=== PATIENT | female | born 1955 | race Caucasian/White ===

== ENCOUNTER → 2016-08-28 | Outpatient (CLI) | payer OTHER | END | disposition home or self-care (01) | LOC: PCVCIMAG 09:19 | PROVIDERS: ATTEND Nuclear Medicine Nuclear Cardiology | DX: I65.23 Occlusion and stenosis of bilateral carotid arteries (principal); I73.9 Peripheral vascular disease, unspecified; Z95.820 Peripheral vascular angioplasty status with implants and grafts | CPT/HCPCS: 93880; 93923; 93978; 93924 ==

== ENCOUNTER → 2017-09-04 | Outpatient (CLI) | payer OTHER | END | disposition home or self-care (01) | LOC: PCVCIMAG 12:54 | DX: I10 Essential (primary) hypertension (principal); I73.9 Peripheral vascular disease, unspecified; E78.5 Hyperlipidemia, unspecified; I65.23 Occlusion and stenosis of bilateral carotid arteries; Z95.820 Peripheral vascular angioplasty status with implants and grafts | CPT/HCPCS: 93880; 93923; 93978 ==

== ENCOUNTER → 2018-03-18 | Outpatient (CLI) | payer OTHER ==
--- NOTE | 2018-03-18 14:27 | PCVCIMAG ---
EXAM: NONINVASIVE ARTERIAL EXAMINATION OF BOTH LOWER EXTREMITIES INCLUDING PRE AND POST EXERCISE PRESSURE MEASUREMENTS AND DOPPLER WAVEFORMS INDICATION: Peripheral Arterial Disease. Leg pain. FINDINGS: Right Brachial: 144 mm Hg. Right Dorsalis Pedis: 148 mm Hg. Right Posterior Tibial: 147 mm Hg. Right CARLA = 1.03. Left Brachial: 135 mm Hg. Left Dorsalis Pedis: 157 mm Hg. Left Posterior Tibial: 91 mm Hg. Left CARLA = 1.09. Post Exercise: Right Brachial 165 mm Hg. Right Dorsalis Pedis: 133 mm Hg. Left Dorsalis Pedis: 157 mm Hg. Right CARLA = 0.81. Left CARLA = 0.95. IMPRESSION: No resting ischemia in the right lower extremity. Mild exercise induced ischemia in the right lower extremity. No resting ischemia in the left lower extremity. No exercise induced ischemia in the left lower extremity. LOC:[id number]
--- NOTE | 2018-03-18 14:30 | PCVCIMAG ---
EXAM: AORTOILIAC DUPLEX INDICATION: Peripheral arterial disease FINDINGS: AORTA: Suprarenal aorta measures maximum diameter of 2.8 cm. There is not a fusiform infrarenal aortic aneurysm. The infrarenal aorta measures maximum diameter of 2.2 cm. No aortic stenosis. RIGHT COMMON ILIAC ARTERY: Maximum diameter is 1.2 cm. 50-60% restenosis within prior stent. RIGHT EXTERNAL ILIAC ARTERY: No significant stenosis. LEFT COMMON ILIAC ARTERY: Maximum diameter is 1.0 cm. No significant stenosis. LEFT EXTERNAL ILIAC ARTERY: No significant stenosis. IMPRESSION: No abdominal aortic aneurysm. 50-60% restenosis within the right common iliac artery stent. Previous left iliac stents maintaining satisfactory patency. LOC:[id number]
== END | disposition home or self-care (01) ==
LOC: PCVCIMAG 14:45
PROVIDERS: ATTEND Nuclear Medicine Nuclear Cardiology
DX: I73.9 Peripheral vascular disease, unspecified (principal)
CPT/HCPCS: 93923; 93978; 93924

== ENCOUNTER → 2018-03-22 | Outpatient (CLI) | payer OTHER ==
[~2018-03-22] MED LIST: ACETAMINOPHEN 500 MG TABLET PO ONE; CLOPIDOGREL BISULFATE 75 MG TABLET ONE; DIAZEPAM 10 MG TABLET. ONE; HEPARIN SODIUM 5,000 UNIT/ML VIAL for PCVC. ONE; IODIXANOL 270 MG/ML 100 ML VIAL. ONE; IV NORMAL SALINE 1000ML BAG 1,000 ML ONE; LIDOCAINE 1%/EPI 1:100,000 20 ML VIAL. ONE; MIDAZOLAM HCL/PF 2 MG/2 ML VIAL. ONE; WATER FOR INJECTION,STERILE 10 ML IJ ONE; ceFAZolin SODIUM 1 GM VIAL ONE; fentaNYL PF VIAL 100 MCG/2 ML VIAL ONE; hydrALAZINE 20 MG/ML VIAL. ONE
--- NOTE | 2018-03-22 10:52 | PCVCINTER ---
EXAM: 1. AORTOGRAM AND BILATERAL LOWER EXTREMITY RUNOFF ANGIOGRAM 2. BILATERAL RENAL ANGIOGRAPHY 3. AORTIC STENT PLACEMENT. 4. RIGHT COMMON ILIAC ARTERY STENT GRAFT PLACEMENT. 5. LEFT COMMON ILIAC ARTERY STENT GRAFT PLACEMENT. INDICATION: Peripheral arterial disease. Lower extremity claudication. Hypertension. Renal atherosclerosis. No prior catheter based angiographic study is available. A full diagnostic angiogram study is performed today and the decision to intervene is based on this diagnostic study. PROCEDURE: Procedure and risks of angiography intervention is appropriate including limb loss stroke and were discussed with the patient's family and consent obtained. The patient's right groin was prepped in the normal sterile fashion. IV conscious sedation was used throughout procedure with appropriate monitoring from 9:00 AM through 10:00 AM. Ultrasound was used to interrogate the right groin and showed the right common femoral artery to be patent. A permanent spot film was obtained. Under ultrasound guidance access into the right common femoral artery was obtained and a 5 [place] sheath was placed. Through this a 5 [place] flush catheter was placed into the abdominal aorta at the level of the renal arteries and AP aortogram was performed. Catheter was positioned at the aortic bifurcation and both oblique views of the pelvis were obtained. Catheter was positioned into the right external iliac artery and right leg runoff angiography was performed. Catheter was exchanged for a visceral catheter was placed into the right renal arteries and right renal angiograms obtained. Catheter was placed into the the left renal arteries and left renal angiograms were obtained. Catheter was advanced to the level of the left external iliac artery and left leg runoff angiography was obtained. The left groin was prepped and draped in the normal sterile fashion. Under ultrasound guidance access into the left common femoral artery was obtained and a 7 [place] sheath was placed. The right groin sheath was upsized to 8 [place]. Stent placement across the areas of high-grade stenosis in the distal abdominal aorta was carried out with VBX stent grafts deployed in a kissing fashion with subsequent dilatation to 9 and 12 mm. Stent placement across the areas of high-grade stenosis in the right common iliac artery was carried out with a 10 x 39 VBX stent graft with subsequent dilatation to 12.0 mm. Stent placement across the areas of high-grade stenosis in the left common iliac artery was carried out with a 9.0 with subsequent dilatation to diameter mm. Follow-up angiogram was performed. Catheters and wires removed. Sheath was removed and hemostasis obtained using the FISH device. No immediate complications. FINDINGS: Aortogram: There is one right and 2 left renal arteries. Moderate plaque infrarenal abdominal aorta. Moderate restenosis distal aorta. Pelvis: Moderate restenosis origin previous right common iliac artery stent. Stenosis origin left common iliac artery stent. Both internal iliac arteries are patent. The right and left external iliac arteries are patent. The right and left common femoral and profunda femoral arteries are patent. Right renal artery: Moderate plaque proximal vessel causes minimal stenosis. Left renal artery: There are 2 renal arteries. The upper renal artery has moderate plaque proximally which causes 40% stenosis. The lower artery has mild plaque that does not cause significant stenosis. Right leg: Superficial femoral artery and popliteal artery are patent. Three-vessel runoff into the foot. Left leg: Superficial femoral artery and popliteal artery are patent. Three-vessel runoff into the foot. Aorta: Following procedure as above the distal aorta shows good patency throughout. Right common iliac artery: Following procedure as above vessel shows good patency throughout. Left common iliac artery: Following procedure as above vessel shows good patency throughout. IMPRESSION: Moderate stenosis distal aorta at the origins of the right and left common iliac arteries were treated with stent graft placement as above with good patency restored. LOC:[id number]
== END | disposition home or self-care (01) ==
LOC: PCVCINTER 13:40
PROVIDERS: ATTEND Nuclear Medicine Nuclear Cardiology
DX: I70.1 Atherosclerosis of renal artery (principal); I70.228 Atherosclerosis of native arteries of extremities with rest pain, other extremity; I10 Essential (primary) hypertension
CPT/HCPCS: 36252; 37221; 37236; 75716; 76937; 99152; 99153; C1713; C1725; C1751; C1769; C1874; C1894; J0690; J1644; J2250; J3010; J3490; J7030; J0360

== ENCOUNTER → 2018-09-23 | Outpatient (CLI) | payer OTHER ==
--- NOTE | 2018-09-23 09:33 | PCVCIMAG ---
EXAM: NONINVASIVE ARTERIAL EXAMINATION OF BOTH LOWER EXTREMITIES INCLUDING PRE AND POST EXERCISE PRESSURE MEASUREMENTS AND DOPPLER WAVEFORMS INDICATION: Peripheral Arterial Disease. Leg pain. FINDINGS: Right Brachial: 144 mm Hg. Right Dorsalis Pedis: 158 mm Hg. Right Posterior Tibial: 156 mm Hg. Right CARLA = 1.10. Left Brachial: 143 mm Hg. Left Dorsalis Pedis: 130 mm Hg. Left Posterior Tibial: 129 mm Hg. Left CARLA = 0.90. Post Exercise: Right Brachial 157 mm Hg. Right Dorsalis Pedis: 130 mm Hg. Left Dorsalis Pedis: 134 mm Hg. Right CARLA = 0.83. Left CARLA = 0.85. IMPRESSION: No resting ischemia in the right lower extremity. Minimal exercise induced ischemia in the right lower extremity. No resting ischemia in the left lower extremity. Minimal exercise induced ischemia in the left lower extremity. LOC:[id number]
--- NOTE | 2018-09-23 10:28 | PCVCIMAG ---
APPROVED REPORT Laterality: Bilateral Indications Stenosis Doppler Spectral Velocity Analysis PSV / EDVPSV / EDV ECA (R) 117 / 28 cm/sECA (L) 86 / 19 cm/s dICA (R) 65 / 24 cm/sdICA (L) 57 / 24 cm/s Fabien (R) 87 / 35 cm/smICA (L) 84 / 33 cm/s pICA (R) 100 / 40 cm/spICA (L) 133 / 42 cm/s Bulb (R) 74 / 29 cm/sBulb (L) 92 / 27 cm/s dCCA (R) 77 / 26 cm/sdCCA (L) 82 / 32 cm/s mCCA (R) 71 / 22 cm/smCCA (L) 90 / 31 cm/s Vert (R) 46 / 18 cm/sVert (L) 50 / 18 cm/s ICA/CCA 1.30 ICA/CCA 1.62 Findings The right carotid bulb has moderate calcified plaque. The right proximal internal carotid artery shows <40% stenosis. The right common carotid artery shows no significant stenosis. The right external carotid artery shows no significant stenosis. The left carotid bulb has moderate calcified plaque. The left proximal internal carotid artery shows 40-50% stenosis. The left common carotid artery shows no significant stenosis. The left external carotid artery shows no significant stenosis. Conclusion 1. Right internal carotid artery stenosis (<40%) 2. Left internal carotid artery stenosis (40-50%) 3. Antegrade vertebral flow
--- NOTE | 2018-09-23 21:32 | PCVCIMAG ---
EXAM: AORTOILIAC DUPLEX INDICATION: Peripheral arterial disease FINDINGS: AORTA: Suprarenal aorta measures maximum diameter of 2.8 cm. There is not a fusiform infrarenal aortic aneurysm. The infrarenal aorta measures maximum diameter of 2.0 cm. No aortic stenosis. RIGHT COMMON ILIAC ARTERY: Maximum diameter is 1.0 cm. No significant stenosis. RIGHT EXTERNAL ILIAC ARTERY: Mild stenosis. LEFT COMMON ILIAC ARTERY: Maximum diameter is 1.1 cm. No significant stenosis. LEFT EXTERNAL ILIAC ARTERY: No significant stenosis. IMPRESSION: No abdominal aortic aneurysm. No significant aortoiliac stenosis seen. Previous distal aortic and bilateral common iliac artery stents remain patent. LOC:OFFICE
--- NOTE | 2018-09-23 21:34 | PCVCIMAG ---
EXAM: BILATERAL LOWER EXTREMITY ARTERIAL DUPLEX INDICATION: Peripheral Arterial Disease. Leg pain. FINDINGS: Right Leg: Satisfactory arterial waveforms throughout the common/profunda/superficial femoral, popliteal, anterior tibial, peroneal, and posterior tibial arteries. No flow limiting stenosis seen. Left Leg: Satisfactory arterial waveforms throughout the common/profunda/superficial femoral, popliteal, anterior tibial, peroneal, and posterior tibial arteries. No flow limiting stenosis seen. IMPRESSION: No flow limiting stenosis in the right lower extremity. No flow limiting stenosis in the left lower extremity. LOC:OFFICE
== END | disposition home or self-care (01) ==
LOC: PCVCIMAG 08:25
PROVIDERS: ATTEND Nuclear Medicine Nuclear Cardiology
DX: I65.23 Occlusion and stenosis of bilateral carotid arteries (principal); I73.9 Peripheral vascular disease, unspecified; E78.00 Pure hypercholesterolemia, unspecified; R09.89 Other specified symptoms and signs involving the circulatory and respiratory systems; I77.9 Disorder of arteries and arterioles, unspecified
CPT/HCPCS: 93880; 93924; 93925; 93978

== ENCOUNTER → 2019-07-01 | Outpatient (CLI) | payer OTHER ==
--- NOTE | 2019-07-01 08:47 | PCVCIMAG ---
EXAM: NONINVASIVE ARTERIAL EXAMINATION OF BOTH LOWER EXTREMITIES INCLUDING PRE AND POST EXERCISE PRESSURE MEASUREMENTS AND DOPPLER WAVEFORMS INDICATION: Peripheral Arterial Disease. Leg pain. FINDINGS: Right Brachial: 127 mm Hg. Right Dorsalis Pedis: 129 mm Hg. Right Posterior Tibial: 137 mm Hg. Right CARLA = 1.08. Left Brachial: 120 mm Hg. Left Dorsalis Pedis: 138 mm Hg. Left Posterior Tibial: 131 mm Hg. Left CARLA = 1.09. Post Exercise: Right Brachial 127 mm Hg. Right Posterior Tibial: 135 mm Hg. Left Dorsalis Pedis: 133 mm Hg. Right CARLA = 1.06. Left CARLA = 1.05. IMPRESSION: No resting ischemia in the right lower extremity. No exercise induced ischemia in the right lower extremity. No resting ischemia in the left lower extremity. No exercise induced ischemia in the left lower extremity. LOC:[id number]
--- NOTE | 2019-07-01 09:06 | PCVCIMAG ---
EXAM: BILATERAL CAROTID DUPLEX INDICATION: Carotid Occlusive Disease. FINDINGS: Doppler Measurements (centimeters per second): RIGHT: Peak CCA-92, Peak ECA-84, Diastolic ICA-53, Peak ICA-124, ICA/CCA Ratio-1.4. LEFT: Peak CCA-90, Peak ECA-74, Diastolic ICA-37, Peak ICA-123, ICA/CCA Ratio-1.4. RIGHT CAROTID: The carotid bulb has moderate plaque. The proximal internal carotid artery shows 40-50% stenosis. The common carotid artery shows no significant stenosis. The external carotid artery shows no significant stenosis. LEFT CAROTID: The carotid bulb has moderate plaque. The proximal internal carotid artery shows 40-50% stenosis. The common carotid artery shows no significant stenosis. The external carotid artery shows no significant stenosis. Antegrade flow in both vertebral arteries. IMPRESSION: 40-50% stenosis of the right internal carotid artery with moderate plaque. 40-50% stenosis of the left internal carotid artery with moderate plaque. Little overall change since September 2018 study. LOC:[id number]
--- NOTE | 2019-07-01 09:20 | PCVCIMAG ---
EXAM: AORTOILIAC DUPLEX INDICATION: Peripheral arterial disease FINDINGS: AORTA: Suprarenal aorta measures maximum diameter of 2.5 cm. There is not a fusiform infrarenal aortic aneurysm. The infrarenal aorta measures maximum diameter of 2.2 cm. No aortic stenosis. RIGHT COMMON ILIAC ARTERY: Maximum diameter is 1.0 cm. No significant stenosis. RIGHT EXTERNAL ILIAC ARTERY: No significant stenosis. LEFT COMMON ILIAC ARTERY: Maximum diameter is 1.0 cm. No significant stenosis. LEFT EXTERNAL ILIAC ARTERY: No significant stenosis. IMPRESSION: No abdominal aortic aneurysm. No aortoiliac stenosis seen. Previous bilateral iliac stents are patent. LOC:[id number]
== END | disposition home or self-care (01) ==
LOC: PCVCIMAG 08:03
PROVIDERS: ATTEND Nuclear Medicine Nuclear Cardiology
DX: I65.23 Occlusion and stenosis of bilateral carotid arteries (principal); I25.10 Atherosclerotic heart disease of native coronary artery without angina pectoris; E78.5 Hyperlipidemia, unspecified; I10 Essential (primary) hypertension; I73.9 Peripheral vascular disease, unspecified; F17.200 Nicotine dependence, unspecified, uncomplicated; E78.00 Pure hypercholesterolemia, unspecified; Z79.899 Other long term (current) drug therapy
CPT/HCPCS: 93880; 93924; 93978